=== PATIENT | female | born 1955 | race Caucasian/White ===

== ENCOUNTER 2018-04-28 10:30 | Outpatient (RCR) | payer SELFPAY | END 2018-05-05 23:59 | LOC: NS 10:30 | PROVIDERS: Family Provider Family Medicine; PCP Family Medicine; Visit Provider Family Medicine | DX: E66.01 Morbid (severe) obesity due to excess calories (principal); Z68.45 Body mass index [BMI] 70 or greater, adult; Z71.3 Dietary counseling and surveillance | CPT/HCPCS: 97802; 97803 ==

== ENCOUNTER 2018-06-02 11:30 | Outpatient (RCR) | payer SELFPAY | END 2018-06-05 23:59 | LOC: NS 11:30 | PROVIDERS: Family Provider Family Medicine; PCP Family Medicine; Visit Provider Family Medicine | DX: E66.01 Morbid (severe) obesity due to excess calories (principal); Z68.45 Body mass index [BMI] 70 or greater, adult; Z71.3 Dietary counseling and surveillance | CPT/HCPCS: 97803 ==

== ENCOUNTER 2018-07-27 10:00 | Outpatient (RCR) | payer SELFPAY | END 2018-07-27 23:59 | LOC: NS 10:00 | PROVIDERS: Family Provider Family Medicine; PCP Family Medicine; Visit Provider Family Medicine | DX: E66.01 Morbid (severe) obesity due to excess calories (principal); Z68.43 Body mass index [BMI] 50.0-59.9, adult; Z71.3 Dietary counseling and surveillance | CPT/HCPCS: 97803 ==

== ENCOUNTER 2022-03-24 16:54 | Emergency (ER) | payer OTHER, SELFPAY ==
[2022-03-24 16:56] VITALS: BP 177/93; PULSE 97; RESP 20; TEMP 36; O2SAT 100; BMI 60.5
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
[2022-03-24 17:44] LABS: Bacteria 0 SEEN /hpf (None Seen); Mucous, Urine 0 SEEN /hpf (<or=2+); Red Blood Cells-Urine 0 SEEN /hpf (0-5); White Blood Cells 0 SEEN /hpf (0-5)
[2022-03-24 17:52] LABS: Color, Urine Yellow (Yellow); Glucose, Dipstick Normal (Normal); Ketone-Dipstick Negative (Negative); Leukocyte Esterase-Dipstick Negative /ul (Negative); Nitrite-Dipstick Negative (Negative); Occult Blood-Urine Negative /ul (Negative); Protein-Dipstick Negative (Negative); Specific Gravity, Urine 1.015 (1.002-1.030); Urine Bilirubin Dipstick Negative (Negative); Urine Clarity Clear (Clear); Urine Urobilinogen Normal (Normal)
[2022-03-24 17:59] LABS: Squamous Epithelial Cells - UA 0-5 SEEN /hpf (5-10)
[2022-03-24 18:04] LABS: Amphetamine Urine VISTA NEGATIVE (<1000 ng/mL); Barbiturate Urine VISTA NEGATIVE (< 200 ng/mL); Benzodiazepine Urine VISTA NEGATIVE (< 200 ng/mL); Cocaine Urine VISTA NEGATIVE (< 300 ng/mL); Ecstacy Urine VISTA POSITIVE (< 500 ng/mL); Methadone Urine VISTA NEGATIVE (< 300 ng/mL); PCP Urine VISTA NEGATIVE (< 25 ng/mL); THC Urine VISTA NEGATIVE (< 50 ng/mL); Vista UDS pH Range 6
[2022-03-24 18:13] LABS: Alcohol, Blood (Medical)-Serum < 3.0 mg/dL
[2022-03-24 18:18] LABS: Absolute Lymphocyte Count 2.11 X10^3/uL (0.83-4.51); Absolute Neutrophil Count 4.9 X10^3/uL (2.0-7.7); Basophil# 0.03 X10^3/uL; Basophil% 0.4 % (0-1); Eosinophil# 0.04 X10^3/uL; Eosinophils% 0.5 % (0-5); Hematocrit 45.6 % (37-47); Hemoglobin 14.9 g/dL (12.0-15.0); Lymphocyte # 2.11 X10^3/ul (0.83-4.51); Mean Corp Hgb Conc 32.7 g/dL (32-36); Mean Corpuscular Hgb 29.7 pg (27.0-32.0); Mean Corpuscular Volume 90.8 fL (81-99); Mean Platelet Vol. 9.2 fl (6.2-12.0); Monocyte# 0.69 X10^3/uL; Monocyte% 8.8 % (0-10); NRBC Flagged by Analyzer 0 % (0-5); Neutrophil # 4.92 X10^3/uL (2.7-7.7); Platelet Count 194 K/mm3 (150-450); RBC Distribution Width CV 13.5 % (11.6-14.6); Red Blood Count 5.02 M/mm3 (4.2-5.4); White Blood Count 7.8 K/mm3 (4.4-11.0)
--- NOTE | 2022-03-24 18:27 | ED.RN ---
THIS RN SPOKE WITH DAUGHTER- MARIAM POWERS ABOUT MOTHERS CONDITION. DAUGHTER WAS CALLING TO CHECK ON MOTHERS CONDITION SHE WAS THE ONE THAT CALLED THE NUCLEAR POWERPLANT MECHANIC HEL[employer]. SHE STATES SHE CAN BE REACHED AT THEIR ANSWERING SERVICE #[phone]
[2022-03-24 18:38] LABS: ALB/GLOB Ratio 0.7 RATIO (0.9-2.4); AST(SGOT) 17 U/L (15-37); Alanine Aminotransfer ALT/SGPT 21 U/L (13-56); Albumin, Serum 3.3 g/dL (3.2-5.0); Alkaline Phosphatase 105 U/L (45-117); Anion Gap 6 (5-15); BUN 12 mg/dL (7-18); BUN/Creat Ratio 14.7 RATIO (10-20); Calcium,Total 9.5 mg/dL (8.5-10.1); Chloride 106 mmol/L (98-107); Creatinine, Serum 0.81 mg/dL (0.55-1.02); EST Glomerular Filtration Rate 75 mL/min (>60); Est Glom Filt Rate - Afr Amer 91 mL/min (>60); Estimated Creatinine Clearance 49.74 ml/min; Globulin 4.8 g/dL (2.2-4.2); Glucose 115 mg/dL (74-106); Potassium 3.7 mmol/L (3.5-5.1); Protein, Total 8.1 g/dL (6.4-8.2); Sodium Level 140 mmol/L (136-145)
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
--- NOTE | 2022-03-24 18:54 | NURSING ---
SPOKE WITH CRISIS AT 1845 AND THEY SAID THEY WILL BE COMING IN TO SPEAK WITH PATIENT
[2022-03-24 20:00] VITALS: RESP 14
[2022-03-24 21:00] VITALS: BP 155/75; PULSE 99; RESP 16; O2SAT 98
--- NOTE | 2022-03-24 21:20 | EKG12_ITS ---
Test Reason : DYSRHYTHMIA Blood Pressure : / mmHG Vent. Rate : 082 BPM Atrial Rate : 082 BPM P-R Int : 152 ms QRS Dur : 096 ms QT Int : 384 ms P-R-T Axes : 061 037 014 degrees QTc Int : 448 ms Normal sinus rhythm Normal ECG Confirmed by REMI PENDLETON, KAMARI ([id number]), technical writer and editor MARIAM SAAVEDRA ([id number]) on 03/26/2022 9:01:25 AM Referred By: DC Confirmed By:KAMARI KHALIL MD
--- NOTE | 2022-03-24 21:34 | ED.RN ---
pt requesting night time med. home med list verified with pt. dr ramirez updated and meds ordered.
[2022-03-24] MEDS: Mirtazapine 30 MG Tablet PO (21:44)
[2022-03-25] MEDS: Ziprasidone HCl 20 MG Capsule PO (04:28)
--- NOTE | 2022-03-25 04:29 | ED.RN ---
PT BECAME AGITATED, PACING IN ROOM YELLING I WANT TO GO HOME, I'M GOING CRAZY IN THIS ROOM. PT REDIRECTED TO SIT IN CHAIR, DISCUSSED PINK SLIP PROCESS, ABLE TO DE-ESCALATE WITH CONVERSATION. PT OFFERED AND ACCEPTED MEDICATION TO HELP CALM.
[2022-03-25 08:18] VITALS: RESP 16
--- NOTE | 2022-03-25 10:26 | NURSING ---
PER [employer] PRESENTATION ASSOCIATE, CRISIS CALLED AND PT IS PENDING AT [facility]. WAITING APPROVAL FROM [facility]
--- NOTE | 2022-03-25 10:27 | CM.ED ---
FAUSTO Note FAUSTO called Sugar at Crisis. Patient has been accepted at [facility]. However, the [facility] representatives are working on paperwork for [facility] stating they will be financially responsible for the bill and the religion is currently working on that. FAUSTO asked if there is anything else that this ticket writer can do and Sugar said no as they are just waiting for the paperwork from the [facility]. Sugar will keep this ticket writer updated. Plan: [facility] Andreia HOLLINS
[2022-03-25] MEDS: buPROPion (XL) 300 MG TABLET.XL PO (11:51)
[2022-03-25] MEDS: APIXABAN 5 MG TABLET PO (11:51)
[2022-03-25] MEDS: Metoprolol(XL)Succ 50 MG Tablet PO (11:53)
[2022-03-25 11:54] VITALS: BP 155/72; PULSE 103; RESP 18; O2SAT 98
--- NOTE | 2022-03-25 12:04 | CM.ED ---
FAUSTO Note Sugar from [facility] called and stated that [facility] would like an update on how patient is doing. Sugar said that she also spoke to patient' s daughter, Daysi Castrejon, who is currently working on financial responsibility paperwork for [facility]. FAUSTO spoke to [facility] Serene who indicated patient had been doing well this morning. (Johan NIEVES was with other patient) FAUSTO called [facility] and spoke to Mehnaz. Mehnaz requested this update be in writing. FAUSTO faxed an update from this screenplay writer to [facility]. Fax number is [phone] Andreia HOLLINS
--- NOTE | 2022-03-25 12:29 | CM.ED ---
FAUSTO Note SW received call from [facility]. She said that they could accept patient. THey just need letter of acknowledgement of financial responsibility. FAUSTO advised that family is working on it. Plan: Radha Gaona. Andreia HOLLINS
--- NOTE | 2022-03-25 14:29 | CM.ED ---
FAUSTO Note FAUSTO called patient's daughter, Daysi Castrejon and left voice mail message. FAUSTO received message from Daysi returning the call. FAUSTO called Daysi Castrejon again and left voice mail message. Daysi called this commercial loan underwriter back. Daysi said that she has talked to her mom. Daysi said that her mom wants to go home and inquired if she could go home. SW said that patient needs inpatient psych. Daysi asked if patient could go to [facility] in [facility] and FAUSTO said that patient needs inpatient psych. Daysi was advised that once discharged patient could go to [facility] and Daysi said she will stay there for 3 weeks. Daysi asked if a day haul or farm charter bus driver could bring patient to [facility] and FAUSTO advised patient needs to go by EMS. FAUSTO said that [facility] will accept patient but they need letter of financial responsibility. FAUSTO explained that the letter needs to state that the [facility] will be financially responsible and then signed by the jew deacon or tubbs. Daysi said that she will get a day haul or farm charter bus driver and have Jeramie Wolf, the tubbs, sign the paperwork and bring it to the ED. Daysi has no access to fax machines. Daysi inquired about when patient is leaving and social media designer advised that it cannot be scheduled till after the paperwork is received. Daysi inquired about her father and her visiting today. (FAUSTO had advised that they could visit however, this commercial loan underwriter was advised that the trigger so the can NOT visit and this commercial loan underwriter will update him when he arrives). FAUSTO called Mehnaz at [facility]. Advised that family is hoping to get day haul or farm charter bus driver and to the ED by 3pm with the paper. FAUSTO also inquired if they need an deposit and Mehnaz said no. SW will fax the requested documentation of financial responsibility to [facility] when it is received. SW spoke to patient. Advised that patient needs to go to [facility] by squad and that she needs inpatient psych hospitalization. Patient has been at [place] in the past as well as [facility]. Patient inquired about the programming at [facility]. SW spoke in general about what programming that the hospitals have for patients. SW updated patient. FAUSTO spoke to Serene, community manager and she will call for EMS on will call. Plan: [facility].
--- NOTE | 2022-03-25 14:45 | ED.RN ---
SPOKE WITH LEISA FROM [facility], [facility] SET UP FOR 17:[address] [facility].
[2022-03-25 16:18] VITALS: BP 154/82; PULSE 83; RESP 18; TEMP 36.7; O2SAT 99
--- NOTE | 2022-03-25 16:45 | CM.ED ---
Social Work Note FAUSTO and Andreia COOPER updated that pt's daughter Daysi and pt's is present at [facility]. Daysi provided SW with letter from pt's anglican stating that they will cover the financial responsibility for pt. FAUSTO faxed this note to [facility]. Daysi states that she would like her father to receive counseling at home. Daysi and her father (pt's ) was instructed to follow up with either [facility] or Jeremy at [facility]. Pt's updated that at this time, he shouldn't go back to see pt as pt is calm and don't want to anything to trigger pt. Pt's asking how much it will cost for pt. FAUSTO informed pt's family that FAUSTO is not sure, can check with [facility]. FAUSTO spoke with Mehnaz at [facility]. Accepting Physician is Yakelin Hdez NP. Pt is going to the [facility] and RN to RN is [phone]. The cost for pt is $900 a day not including the doctor's bill, pt' family updated. Original statement from pt's family stating pt's anglican will cover pt financially at [facility] was included in the packet that was sent with pt to [facility]. [facility] [place] CALL WORKER PERSON, HOME SUPPORT WORKER
--- NOTE | 2022-03-26 15:52 | CM.ED ---
FAUSTO Note FAUSTO called Sugar at [facility]- crisis. FAUSTO advised that patient's daughter had indicated that patient's would benefit from someone coming to the house and speaking to patient's . Sugar said that they have an [facility] watch caser and the watch caser was going to follow up with patient's today. Andreia HOLLINS
== END 2022-03-25 16:39 ==
PROVIDERS: Emergency Provider Emergency Medicine; PCP Family Medicine; Visit Provider Emergency Medicine
DX: R45.851 Suicidal ideations (principal); R45.850 Homicidal ideations; F32.A Depression, unspecified; I10 Essential (primary) hypertension; Z79.01 Long term (current) use of anticoagulants; Z79.899 Other long term (current) drug therapy
CPT/HCPCS: 36415; 80053; 80307; 81001; 82077; 85025; 87811; 93005; 99285; A4216

== ENCOUNTER 2023-04-13 06:27 | Emergency (ER) | payer OTHER, SELFPAY ==
[2023-04-13 06:28] VITALS: BP 167/82; PULSE 79; RESP 24; TEMP 36.1; O2SAT 97; BMI 66.9
--- NOTE | 2023-04-13 06:41 | EKG12_ITS ---
Test Reason : CP Blood Pressure : / mmHG Vent. Rate : 081 BPM Atrial Rate : 081 BPM P-R Int : 138 ms QRS Dur : 096 ms QT Int : 358 ms P-R-T Axes : 057 033 049 degrees QTc Int : 415 ms Normal sinus rhythm Normal ECG Confirmed by STEPHANIE GRIER MD ([id number]), editorial clerk MARIAM SAAVEDRA ([id number]) on 04/15/2023 8:27:53 AM Referred By: PC Confirmed By:STEPHANIE GRIER MD
--- NOTE | 2023-04-13 06:41 | EX.ED.DYSGE1 ---
HPI History of Present Illness Chief Complaint: Chest Pain Narrative Narrative: Patient presents with 3 weeks of chest pain and shortness of breath that got worse today. She is also feeling weak. She has also had significant worsening of her lower extremity edema. She has a history of CHF she is no longer on any diuretics. No recent fevers or chills. No abdominal pain no back pain or tearing sensation. She is on Eliquis and takes it without missing doses PFSH PFS Medical History Arthritis Depression Essential (primary) hypertension Hx of deep venous thrombosis Hyperlipidemia Morbid (severe) obesity due to excess calories Home Medications bupropion HCl 150 mg 24 hr tablet, extended release 300 mg PO DAILY 04/14/17 [History Last Taken 04/14/17] mirtazapine 30 mg tablet 30 mg PO QHS 04/14/17 [History Last Taken 04/13/17] metoprolol succinate 50 mg tablet,extended release 24 hr 50 mg PO DAILY 06/20/20 [History Last Taken Unknown] apixaban 5 mg tablet (Eliquis) 1 tab PO DAILY 03/24/22 [History Last Taken Unknown] Allergy/AdvReac Type Severity Reaction Status Date / Time No Known Allergies Allergy Verified 03/24/22 18:18 Family History Mother CAD (coronary artery disease) Brother CAD (coronary artery disease) Sister Heart disease atrial fib Surgical History History of left heart catheterization (02/2006) Social History Smoking Status: Never smoker ROS ROS ED ROS Narrative Past medical history: Reviewed Medications: Reviewed Social history: Noncontributory Review of systems: All systems negative except as indicated General: No fever Eyes: No visual changes ENT: No upper airway congestion, normal voice Neck: No neck pain Cardiovascular: Chest pain as in HPI Respiratory: Dyspnea as in HPI Gastrointestinal: No abdominal pain, nausea vomiting or diarrhea Genitourinary: No dysuria Musculoskeletal: Denies myalgias no difficulty with ambulation Skin: No rash Neurological: No memory loss, confusion or any focal weakness Psych: No recent behavioral changes EXAM Physical Exam Narrative Exam Narrative: Physical exam General: Well nourished, Well developed, No Acute Distress Head: Normocephalic, Atraumatic Eyes: Conjunctiva not pale ENT: Moist mucous membranes Neck: Supple, Nontender, No lymphadenopathy Cardiovascular: Regular rate, Regular rhythm Respiratory: Coarse bilateral breath sounds with some rhonchi present. Abdomen: Soft, Nontender, Nondistended Back: Nontender, Normal Inspection. Negative for: CVA tenderness Extremities: Bilateral lower extremity edema. No signs of erythema or cellulitis. Skin: Normal color, No rash Neurological: Alert, Normal Strength, Normal Sensation Const Vital Signs: 04/13/23 06:28 Temperature 97.0 F L Temperature Source Temporal Pulse Rate 79 Respiratory Rate 24 H Blood Pressure 167/82 H Blood Pressure Mean 110 Pulse Ox 97 Oxygen Delivery Method Room Air MDM MDM MDM Narrative Medical decision making narrative: EKG: Normal sinus rhythm with a rate of 81. Normal SC and QTc intervals. No ischemic changes Interpreted by emergency doctor Telemetry: Sinus rhythm with a rate in the 80s without ectopy on the monitor. MDM: Patient will need an x-ray, natruretic peptide, troponin, blood work. My suspicion initially is that she has a CHF exacerbation. However I do not have any other results back and patient will be turned over to the oncoming ED physician for further treatment monitoring and disposition. Discharge Plan Triage Chief Complaint: Chest Pain ED Provider: Corey Garcia Dx/Rx/DC Orders Clinical Impression: History of chronic CHF, Acute dyspnea, Edema, Chest pain Prescriptions: No Action metoprolol succinate 50 mg tablet extended release 24 hr 50 mg PO DAILY bupropion HCl 150 MG tablet extended release 24 hr 300 mg PO DAILY Patient Comments: TAKE THREE TABLETS BY MOUTH EVERY MORNING mirtazapine 30 MG tablet 30 mg PO QHS Patient Comments: SLEEP Eliquis 5 mg tablet 1 tab PO DAILY Patient Comments: TAKE ONE TABLET BY MOUTH TWICE DAILY Primary Care Provider: Anoop Novoa Referrals: Anoop Novoa DO [Primary Care Provider] -
[2023-04-13] MEDS: Aspirin 81 MG TAB.CHEW 324 MG PO (06:52)
--- NOTE | 2023-04-13 07:04 | RAD_ITS ---
EXAM: XR CHEST, 1 VIEW CLINICAL INDICATION: chest pain TECHNIQUE: Frontal view of the chest. COMPARISON: No relevant prior studies available. FINDINGS: LUNGS AND PLEURAL SPACES: Unremarkable. No consolidation or edema. No pneumothorax. No effusion. HEART: Borderline cardiomegaly. MEDIASTINUM: Central airways and mediastinal contour are unremarkable. BONES/JOINTS: Unremarkable. SOFT TISSUES: Unremarkable. RAD/Chest 1 View (Portable) IMPRESSION: 1. Borderline cardiomegaly. 2. No acute cardiopulmonary abnormality. Electronically Signed: Doc Stephenson MD at 7:21 EDT ,
[2023-04-13 07:50] LABS: Absolute Lymphocyte Count 3.94 X10^3/uL (0.83-4.51); Absolute Neutrophil Count 4.9 X10^3/uL (2.0-7.7); Basophil# 0.02 X10^3/uL; Basophil% 0.2 % (0-1); Eosinophil# 0.03 X10^3/uL; Eosinophils% 0.3 % (0-5); Hematocrit 39.3 % (37-47); Hemoglobin 12.1 g/dL (12.0-15.0); Lymphocyte # 3.94 X10^3/ul (0.83-4.51); Lymphocyte % 40.2 % (19-41); Mean Corp Hgb Conc 30.8 g/dL (32-36); Mean Corpuscular Hgb 28.9 pg (27.0-32.0); Mean Corpuscular Volume 93.8 fL (81-99); Monocyte# 0.86 X10^3/uL; Monocyte% 8.8 % (0-10); NRBC Flagged by Analyzer 0 % (0-5); Neutrophil # 4.86 X10^3/uL (2.7-7.7); Neutrophil % 49.7 % (47-70); Platelet Count 219 K/mm3 (150-450); RBC Distribution Width CV 16.3 % (11.6-14.6); RBC Distribution Width SD 56.6 fl (35.1-43.9); Red Blood Count 4.19 M/mm3 (4.2-5.4); White Blood Count 9.8 K/mm3 (4.4-11.0)
[2023-04-13 07:59] LABS: Anion Gap 5 (5-15); BUN 30 mg/dL (7-18); Calcium,Total 9.8 mg/dL (8.5-10.1); Chloride 106 mmol/L (98-107); Creatinine, Serum 0.88 mg/dL (0.55-1.02); EST Glomerular Filtration Rate 68 mL/min (>60); Est Glom Filt Rate - Afr Amer 82 mL/min (>60); Estimated Creatinine Clearance 153.48 ml/min; Glucose 113 mg/dL (74-106); Potassium 5.1 mmol/L (3.5-5.1); Sodium Level 139 mmol/L (136-145); Troponin-I HS (w/2H Reflex) 5 pg/mL (3.0-54.0)
[2023-04-13 09:07] LABS: Reflex Troponin-HS? (from REC) Y
[2023-04-13 09:20] VITALS: BP 164/75; PULSE 72; RESP 20; O2SAT 95
[2023-04-13 09:54] LABS: Troponin-I HS 6 pg/mL (3.0-54.0)
[2023-04-13 10:28] VITALS: O2SAT 95
== END 2023-04-13 12:27 | disposition home or self-care (01) ==
PROVIDERS: Emergency Medicine; Emergency Provider Student in an Organized Health Care Education/Training Program; PCP Family Medicine; Visit Provider Student in an Organized Health Care Education/Training Program
DX: I11.0 Hypertensive heart disease with heart failure (principal); I50.9 Heart failure, unspecified; R06.00 Dyspnea, unspecified; R07.9 Chest pain, unspecified; Z79.01 Long term (current) use of anticoagulants; Z79.899 Other long term (current) drug therapy; Z86.711 Personal history of pulmonary embolism
CPT/HCPCS: 36415; 71045; 80048; 83880; 84484; 85025; 93005; 99285

== ENCOUNTER → 2024-06-26 | Outpatient (CLI) | payer OTHER, SELFPAY ==
[2024-06-26 08:08] LABS: Mucous, Urine 0 SEEN /hpf (<or=2+); Squamous Epithelial Cells - UA 0 SEEN /hpf (5-10); White Blood Cells 0 SEEN /hpf (0-5)
[2024-06-26 09:09] LABS: Color, Urine Yellow (Yellow); Glucose, Dipstick Normal (Normal); Ketone-Dipstick Negative (Negative); Leukocyte Esterase-Dipstick 100 /ul (Negative); Nitrite-Dipstick Positive (Negative); Occult Blood-Urine 150 /ul (Negative); Protein-Dipstick 15 mg/dl (Negative); Urine Bilirubin Dipstick Negative (Negative); Urine Clarity Sl. Cloudy (Clear); Urine Urobilinogen Normal (Normal); Urine pH 6.5 (5.0 - 8.0)
[2024-06-26 09:23] LABS: Bacteria 2+ /hpf (None Seen); Red Blood Cells-Urine 0-5 SEEN /hpf (0-5)
[2024-06-26 09:24] LABS: Amorphous Sediment 1+
== END | disposition home or self-care (01) ==
LOC: LABSPEC 08:00
PROVIDERS: PCP Family Medicine; Referring Provider Family Medicine; Visit Provider Family Medicine
DX: N39.0 Urinary tract infection, site not specified (principal)
CPT/HCPCS: 81001; 87077; 87086; 87088; 87186